=== PATIENT | female | born 2000 | race Caucasian/White ===

== ENCOUNTER 2021-08-16 15:00 | Outpatient (CLI) | payer BC | END 2021-08-16 15:01 | disposition home or self-care (01) | LOC: CSHRAD 15:00 | PROVIDERS: ATTEND Internal Medicine Gastroenterology | DX: R19.4 Change in bowel habit (principal); R11.2 Nausea with vomiting, unspecified; R10.30 Lower abdominal pain, unspecified; K62.5 Hemorrhage of anus and rectum; F41.9 Anxiety disorder, unspecified | CPT/HCPCS: 74019 ==

== ENCOUNTER 2023-02-13 09:27 | Outpatient (CLI) | payer BC | END 2023-02-13 09:28 | disposition home or self-care (01) | LOC: CSHULT 09:27 | PROVIDERS: ATTEND Physician Assistant Medical | DX: R10.13 Epigastric pain (principal); R10.11 Right upper quadrant pain; K21.9 Gastro-esophageal reflux disease without esophagitis; R11.0 Nausea; K82.8 Other specified diseases of gallbladder | CPT/HCPCS: 76705 ==